=== PATIENT | female | born 2000 | race Caucasian/White ===

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

== ENCOUNTER 2018-07-20 08:24 | Emergency (ER) | END 2018-07-20 12:25 | disposition home or self-care (01) ==

== ENCOUNTER 2019-03-11 19:16 | Emergency (ER) | payer BC ==
[~2019-03-11] VITALS: Ht 152.4 cm; Wt 63.2 kg
[~2019-03-11 19:16] MED LIST changes: +CAPS42.57 TP; +MAG-19 PO; +OMEP20CA16 PO; +TRAM50TA2 PO
[2019-03-11 19:20] VITALS: BP 139/83; PULSE 90; RESP 18; Ht 152.4 cm; Wt 63.2 kg
[2019-03-11] MEDS ORDERED: FAMOTIDINE 20 MG INJ IV STA (20:02)
[2019-03-11] MEDS ORDERED: BELLADONNA/PHENOBARBITAL TAB PO STA (20:02)
[2019-03-11] MEDS ORDERED: ONDANSETRON 4 MG INJ IV STA ×2 (20:02→21:33)
[2019-03-11] MEDS ORDERED: SOD CHLORIDE 0.9% 1,000 ML IV STA (20:02)
[2019-03-11] MEDS ORDERED: LIDOCAINE/MYLANTA 40 ML BTL PO STA (20:02)
--- NOTE | 2019-03-11 20:13 | ERD ---
ER Documentation Chief Complaint Chief Complaint epigastric burning pain, actively vomiting,dizziness,hx gastritis HPI 18-year-old female presents with epigastric pain for 3 days. She does have nausea and vomiting as well and has been unable to tolerate oral intake. She states she has a history of gastritis and this is consistent with her usual gastritis flareup however this 1 is a little bit worse. She takes Prilosec at home. She is had no fever. No flank pain. No dysuria hematuria or frequency. ROS All systems reviewed and are negative except as per history of present illness. Medications Home Meds Active Scripts Capsaicin/Menthol (Capzasin Quick Relief Gel) 42.5 Gm Gel.w.appl, 42.5 GM TP DAILY, #1 Prov:KATHIE TRAN PA-C 07/20/18 Ondansetron (Ondansetron Odt) 4 Mg Tab.rapdis, 4 MG PO Q6H PRN for NAUSEA AND/OR VOMITING, #10 TAB Prov:KATHIE TRAN PA-C 07/20/18 Omeprazole* (Omeprazole*) 20 Mg Capsule.dr, 20 MG PO DAILY, #30 Prov:WALTER HERNANDEZ NP 05/17/17 Magaldrate/Simethicone* (Mylanta*) 355 Ml Susp, 30 ML PO QID PRN for GASTROINTESTINAL UPSET, #1 BOTTLE Prov:WALTER HERNANDEZ NP 05/17/17 Tramadol HCl (Tramadol HCl) 50 Mg Tablet, 50 MG PO Q6 for SEVERE PAIN LEVEL 7- 10, #20 TAB Prov:WALTER HERNANDEZ NP 05/17/17 Ondansetron (Ondansetron Odt) 4 Mg Tab.rapdis, 4 MG PO Q8 PRN for NAUSEA AND/OR VOMITING, #30 TAB Prov:WALTER HERNANDEZ NP 05/17/17 Ondansetron (Ondansetron Odt) 4 Mg Tab.rapdis, 4 MG PO Q6H PRN for NAUSEA AND/OR VOMITING, #20 TAB Prov:MARIELA CH MD 06/17/16 Allergies Allergies: Coded Allergies: No Known Allergy (Unverified , 06/17/16) PMhx/Soc History of Surgery: Yes (heart sx (1-2 years old )and stomach biopsy 2017) Hx Psychiatric Problems: Yes (bipolar, anxiety, depression) Hx Miscellaneous Medical Probl: Yes (Gastritis) Hx Alcohol Use: Yes (occasional) Hx Substance Use: Yes (RECREATIONAL marijuana) Hx Tobacco Use: Yes Smoking Status: Current every day smoker FmHx Family History: No diabetes Physical Exam Vitals Vital Signs Date Temp Pulse Resp B/P (MAP) Pulse Ox O2 O2 Flow FiO2 Time Delivery Rate 03/11/19 97.5 90 18 139/83 96 19:20 (101) Physical Exam INITIAL VITAL SIGNS: Reviewed by me GENERAL: Awake, alert and oriented x 4, well appearing, nontoxic, speaking in full sentences. No acute distress HEAD: Atraumatic NECK: Supple. No masses. Full range of motion. No meningismus. No midline tenderness. RESPIRATORY: Clear to auscultation bilaterally. Symmetric chest wall rise. No wheezing or rales. No accessory muscle use. CV: Regular rate and rhythm. No murmurs, rubs, or gallops. ABDOMEN: Soft, non-distended. Nontender. Negative Lohn. Negative McBurneys point tenderness. No CVA tenderness bilaterally. No guarding. No rebound. Result Diagram: 03/11/19201303/11/192013 Results 24 hrs Laboratory Tests Test 03/11/19 20:14 03/11/19 20:30 03/11/19 21:00 White Blood Count 8.8 10^3/ul Red Blood Count 3.88 10^6/ul Hemoglobin 12.4 g/dl Hematocrit 35.5 % Mean Corpuscular Volume 91.5 fl Mean Corpuscular Hemoglobin 32.0 pg Mean Corpuscular 34.9 g/dl Hemoglobin Concent Red Cell Distribution Width 11.6 % Platelet Count 272 10^3/UL Mean Platelet Volume 8.7 fl Immature Granulocytes % 0.300 % Neutrophils % 72.7 % Lymphocytes % 19.5 % Monocytes % 7.1 % Eosinophils % 0.1 % Basophils % 0.3 % Nucleated Red Blood Cells % 0.0 /100WBC Immature Granulocytes # 0.030 10^3/ul Neutrophils # 6.4 10^3/ul Lymphocytes # 1.7 10^3/ul Monocytes # 0.6 10^3/ul Eosinophils # 0.0 10^3/ul Basophils # 0.0 10^3/ul Nucleated Red Blood Cells # 0.0 10^3/ul Sodium Level 139 mmol/L Potassium Level 3.2 mmol/L Chloride Level 104 mmol/L Carbon Dioxide Level 20 mmol/L Anion Gap 15 Blood Urea Nitrogen 7 mg/dl Creatinine 0.76 mg/dl Est Glomerular Filtrat > 60 mL/min Rate mL/min Glucose Level 126 mg/dl Calcium Level 10.1 mg/dl Total Bilirubin 0.4 mg/dl Direct Bilirubin 0.00 mg/dl Indirect Bilirubin 0.4 mg/dl Aspartate Amino 25 IU/L Transf (AST/SGOT) Alanine 23 IU/L Aminotransferase (ALT/SGPT) Alkaline Phosphatase 71 IU/L Total Protein 8.6 g/dl Albumin 4.8 g/dl Globulin 3.80 g/dl Albumin/Globulin Ratio 1.26 Lipase 51 U/L POC Beta HCG, Qualitative NEGATIVE Urine Color YELLOW Urine Clarity SLIGHTLY CLOUDY Urine pH 7.0 Urine Specific [place] 1.024 Urine Ketones 1+ mg/dL Urine Nitrite NEGATIVE mg/dL Urine Bilirubin NEGATIVE mg/dL Urine Urobilinogen NEGATIVE mg/dL Urine Leukocyte Esterase TRACE Christo/ul Urine Microscopic RBC 126 /HPF Urine Microscopic WBC 2 /HPF Urine Squamous Epithelial Cells FEW /HPF Urine Mucus FEW /HPF Urine Hemoglobin 3+ mg/dL Urine Glucose NEGATIVE mg/dL Urine Total Protein NEGATIVE mg/dl Urine Test NEGATIVE Current Medications Medications Dose Sig/Elizabeth Start Time Status Last (Trade) Ordered Route PRN Stop Time Admin Dose Reason Admin Sodium 1,000 ml @ Q1H STAT 03/11/19 DC 03/11/19 Chloride 1,000 mls/hr IV 20:02 20:15 03/11/19 21:01 Ondansetron 4 mg ONCE STAT 03/11/19 DC 03/11/19 HCl (Zofran IV 20:02 20:15 Inj) 03/11/19 20:04 Famotidine 20 mg ONCE STAT 03/11/19 DC 03/11/19 (Pepcid Iv) IV 20:02 20:15 03/11/19 20:04 40 ml ONCE STAT 03/11/19 DC 03/11/19 Miscellaneous PO 20:02 20:15 Medication 03/11/19 20:04 (Gi Cocktail (2)) Belladonna/ 2 tab ONCE STAT 03/11/19 DC 03/11/19 Phenobarbital PO 20:02 20:15 () 03/11/19 20:04 Morphine 2 mg ONCE STAT 03/11/19 DC 03/11/19 Sulfate IV 20:57 21:00 (morphine) 03/11/19 20:58 Lorazepam 0.5 mg ONCE ONCE 03/11/19 DC 03/11/19 (Ativan) IV 21:00 21:00 03/11/19 21:01 Morphine 4 mg ONCE STAT 03/11/19 DC Sulfate IV 21:33 (morphine) 03/11/19 21:34 Ondansetron 4 mg ONCE STAT 03/11/19 DC HCl (Zofran IV 21:33 Inj) 03/11/19 21:34 Procedures/MDM The differential diagnosis includes but is not limited to appendicitis, sang lithiasis, cholecystitis, pancreatitis, hepatitis, gastritis, peptic ulcer disease, bowel obstruction, diverticulitis, renal disease including stones, torsion, AAA, pyelonephritis, and others. Labs were nonacute. Urine has blood but she does states she got her period. Patient felt much better after treatment. Patient counseled regarding my diagnostic impression and care plan. Prior to discharge all questions answered. Pt agrees with treatment plan and understands strict return precautions. Pt is instructed to follow up with primary care provider within 24-48 hours. Precautionary instructions provided including instructions to return to the ER if not improving or for any worsening or changing symptoms or concerns. Departure Diagnosis: Primary Impression: Abdominal pain Condition: Stable REMA SMILEY PA-C Mar 11, 2019 20:13
[2019-03-11] MEDS ORDERED: morphine 2 MG INJ IV STA (20:57)
[2019-03-11] MEDS ORDERED: LORAZEPAM 2 MG INJ IV ONE (21:00)
[2019-03-11] MEDS ORDERED: morphine 4 MG/ML VIAL IV STA (21:33)
== END 2019-03-11 22:21 | disposition home or self-care (01) ==
LOC: FTE 19:16
DX: R10.13 Epigastric pain (principal); F17.210 Nicotine dependence, cigarettes, uncomplicated; R11.2 Nausea with vomiting, unspecified
CPT/HCPCS: 80053; 81001; 81025; 83690; 84703; 85025; 96374; 96375; 96376; 99284; J2060; J2270; J2405; J7030